=== PATIENT | female | born 2000 | race Caucasian/White ===

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

== ENCOUNTER 2022-10-12 14:31 | Day surgery (SDC) | payer BC ==
[~2022-10-12] VITALS: Ht 160 cm; Wt 61.4 kg
[~2022-10-12 14:31] MED LIST changes: +CYCL10TA25 PO; -CYCL10TA9 PO
[2022-10-12 15:00] VITALS: BP 101/61
[2022-10-12] MEDS ORDERED: GENTAMICIN 40 MG/ML IM NR (15:30)
== END 2022-10-12 16:16 | disposition home or self-care (01) ==
LOC: SDC 14:31
PROVIDERS: ATTEND Nurse Practitioner
DX: Z20.2 Contact with and (suspected) exposure to infections with a predominantly sexual mode of transmission (principal); Z28.310 Unvaccinated for COVID-19
CPT/HCPCS: 96372